=== PATIENT | female | born 1990 | race Hispanic/Latino ===

== ENCOUNTER → 2024-04-10 | Emergency (ER) | payer BC ==
[~2024-04-10] VITALS: Ht 162.6 cm; Wt 88.5 kg
[~2024-04-10] MED LIST: ACETAMINOPHEN 500 MG TABLET PO ONE
[2024-04-10 11:43] VITALS: BP 121/56; PULSE 71; RESP 18
== END ==
LOC: EDH 11:35
DX: J00 Acute nasopharyngitis [common cold] (principal); R05.9 Cough, unspecified; Z90.49 Acquired absence of other specified parts of digestive tract
CPT/HCPCS: 99281